=== PATIENT | male | born 2000 | race Two or more races ===

== ENCOUNTER 2019-03-25 10:01 | Emergency (ER) | payer OTHER ==
[~2019-03-25] VITALS: Ht 170.2 cm; Wt 65.8 kg
[2019-03-25] MEDS ORDERED: NKM (10:09)
[2019-03-25 10:45] LABS: HEMATOCRIT 45.4 % (42.0-52.0); HEMOGLOBIN 15.4 G/DL (14.2-18.0); MEAN CORPUSCULAR VOLUME 80 FL (80-99); PLATELET COUNT 393 K/UL (150-450); RED BLOOD COUNT 5.64 M/UL (4.70-6.10); RED CELL DISTRIBUTION WIDTH 10.1 % (11.6-14.8); WHITE BLOOD COUNT 14.9 K/UL (4.8-10.8)
[2019-03-25] MEDS ORDERED: DiphenhydrAMINE 50mg/ml Inj IVP ONE (10:45)
[2019-03-25 10:57] LABS: ANION GAP 16 mmol/L (5-15); BLOOD UREA NITROGEN 11 mg/dL (7-18); CALCIUM 10.2 MG/DL (8.5-10.1); CARBON DIOXIDE 23 MMOL/L (21-32); CHLORIDE 99 MMOL/L (98-107); CREATININE 0.9 MG/DL (0.55-1.30); POTASSIUM 3.6 MMOL/L (3.5-5.1); SODIUM 138 MMOL/L (136-145)
[2019-03-25 11:00] VITALS: BP 141/81
[2019-03-25 11:11] LABS: ALANINE AMINOTRANSFERASE 68 U/L (12-78); ALBUMIN 3.5 G/DL (3.4-5.0); ALBUMIN/GLOBULIN RATIO 0.6 (1.0-2.7); ALKALINE PHOSPHATASE 130 U/L (46-116); ASPARTATE AMINO TRANSFERASE 37 U/L (15-37); BILIRUBIN,TOTAL 1.8 MG/DL (0.2-1.0)
[2019-03-25 11:12] LABS: BILIRUBIN,DIRECT 0.4 MG/DL (0.0-0.3)
--- NOTE | 2019-03-25 11:13 | NUR ---
ED Nurse Note: pt arrives from home states he has n/v/abd with anything he drinks or eats x 10 days. states he has hx of h. pylori. denies recent travel. denies drug or etoh use. denies dyspnea. a/ox4 cooperative and tolerates iv start and lab draw well. pt giving urine sample upon arrival. no active pain n/v
[2019-03-25] MEDS ORDERED: LORazepam Inj 2mg/ml 1ml IV ONE (11:15)
[2019-03-25 12:00] VITALS: BP 152/78
[2019-03-25 13:00] VITALS: BP 124/62
[2019-03-25] MEDS ORDERED: Dicyclomine HCl 10mg/5ml oral soln ORAL ONE (13:00)
[2019-03-25] MEDS ORDERED: Mylanta II UD 30ml ORAL ONE (13:00)
--- NOTE | 2019-03-25 13:00 | NUR ---
ED Nurse Note:pt without increased pain resting in room with vss. family at bs. awaiting further dispo
[2019-03-25] MEDS ORDERED: PEPCID AC20 M2 PO (13:02)
--- NOTE | 2019-03-25 13:52 | Emergency Room Report ---
History of Present Illness General Chief Complaint: Abdominal Pain Source: Patient Present Illness HPI Patient presents with complaints of epigastric abdominal pain increased nausea vomiting reports that he has been unable to keep much food down Ongoing for the past several days Denies any chest pain denies any lower abdominal pain Discomfort is in the epigastric region with some burning and sharp sensation He reports intermittent diarrhea as well over the past 2 days denies any blood in the stool Subjective fevers off and on denies any recent travel denies any neck pain or photophobia denies any rash patient reports that he had H. pylori in the past Allergies: Coded Allergies: No Known Allergies (Unverified , 03/25/19) Patient History Past Medical History: see triage record Pertinent Family History: none Reviewed Nursing Documentation: PMH: Agreed; PSxH: Agreed Nursing Documentation-PMH Past Medical History: No Stated History Review of Systems All Other Systems: negative except mentioned in HPI Physical Exam Vital Signs Date Time Temp Pulse Resp B/P (MAP) Pulse Ox O2 Delivery O2 Flow Rate FiO2 03/25/19 10:04 99.5 120 24 150/88 (108) 93 Room Air Sp02 EP Interpretation: reviewed, normal General Appearance: well appearing, no apparent distress Head: normocephalic, atraumatic Eyes: bilateral eye PERRL, bilateral eye EOMI ENT: hearing grossly normal, normal pharynx, TMs + canals normal, uvula midline Neck: full range of motion, supple, no meningismus, no bony tend Respiratory: lungs clear, normal breath sounds, no rhonchi, no respiratory distress, no retraction, no accessory muscle use Cardiovascular #1: normal peripheral pulses, regular rate, rhythm, no edema, no gallop, no JVD, no murmur Gastrointestinal: normal bowel sounds, non tender - However points to epigastric area for discomfort, soft, no mass, no organomegaly, non-distended, no guarding, no hernia, no pulsatile mass, no rebound Genitourinary: no CVA tenderness Musculoskeletal: normal inspection Neurologic: oriented x3, responsive, commercial review appraiser III-XII nml as tested, motor strength/ tone normal, sensory intact Psychiatric: mood/affect normal Skin: normal color, no rash, warm/dry, palpation normal Lymphatic: normal inspection, no adenopathy Medical Decision Making Diagnostic Impression: Primary Impression: abdominal pain ER Course With the history exam and presentation, multiple differentials considered, including but not limited to appendicitis, gastritis, cholecystitis, diverticulitis Patient's white blood cell count was mildly elevated there is some minimal change with the liver function test Therefore ultrasound imaging was also obtained There is reading regarding the celiac artery This finding is taken into consideration, CT angio is required for further evaluation On repeat examination, however patient feels significantly improved denies any chest pain or shortness of breath Pain is significantly improved as well patient reports a very similar presentation to previous H. pylori disease And at this time is stable for conservative outpatient trial and will return with any worsening symptoms Labs Test 03/25/19 10:30 White Blood Count 14.9 K/UL (4.8-10.8) Red Blood Count 5.64 M/UL (4.70-6.10) Hemoglobin 15.4 G/DL (14.2-18.0) Hematocrit 45.4 % (42.0-52.0) Mean Corpuscular Volume 80 FL (80-99) Mean Corpuscular Hemoglobin 27.2 PG (27.0-31.0) Mean Corpuscular Hemoglobin Concent 33.8 G/DL (32.0-36.0) Red Cell Distribution Width 10.1 % (11.6-14.8) Platelet Count 393 K/UL (150-450) Mean Platelet Volume 5.5 FL (6.5-10.1) Neutrophils (%) (Auto) % (45.0-75.0) Lymphocytes (%) (Auto) % (20.0-45.0) Monocytes (%) (Auto) % (1.0-10.0) Eosinophils (%) (Auto) % (0.0-3.0) Basophils (%) (Auto) % (0.0-2.0) Differential Total Cells Counted 100 Neutrophils % (Manual) 86 % (45-75) Lymphocytes % (Manual) 8 % (20-45) Monocytes % (Manual) 6 % (1-10) Eosinophils % (Manual) 0 % (0-3) Basophils % (Manual) 0 % (0-2) Band Neutrophils 0 % (0-8) Platelet Estimate Adequate Platelet Morphology Normal Red Blood Cell Morphology Normal Sodium Level 138 MMOL/L (136-145) Potassium Level 3.6 MMOL/L (3.5-5.1) Chloride Level 99 MMOL/L (98-107) Carbon Dioxide Level 23 MMOL/L (21-32) Anion Gap 16 mmol/L (5-15) Blood Urea Nitrogen 11 mg/dL (7-18) Creatinine 0.9 MG/DL (0.55-1.30) Estimat Glomerular Filtration Rate > 60 mL/min (>60) Glucose Level 104 MG/DL (74-106) Calcium Level 10.2 MG/DL (8.5-10.1) Total Bilirubin 1.8 MG/DL (0.2-1.0) Direct Bilirubin 0.4 MG/DL (0.0-0.3) Aspartate Amino Transf (AST/SGOT) 37 U/L (15-37) Alanine Aminotransferase (ALT/SGPT) 68 U/L (12-78) Alkaline Phosphatase 130 U/L (46-116) Total Protein 9.6 G/DL (6.4-8.2) Albumin 3.5 G/DL (3.4-5.0) Globulin 6.1 g/dL Albumin/Globulin Ratio 0.6 (1.0-2.7) Lipase 114 U/L (73-393) Urine Opiates Screen Negative (NEGATIVE) Urine Barbiturates Screen Negative (NEGATIVE) Phencyclidine (PCP) Screen Negative (NEGATIVE) Urine Amphetamines Screen Negative (NEGATIVE) Urine Benzodiazepines Screen Negative (NEGATIVE) Urine Cocaine Screen Negative (NEGATIVE) Urine Marijuana (THC) Screen Positive (NEGATIVE) CT/MRI/US Diagnostic Results CT/MRI/US Diagnostic Results : Impression Abdominal ultrasoundIMPRESSION: 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 Significant stenosis may be present. Suggest further evaluation with CTA. Last Vital Signs Date Time Temp Pulse Resp B/P (MAP) Pulse Ox O2 Delivery O2 Flow Rate FiO2 03/25/19 11:17 102 24 Room Air 03/25/19 11:00 141/81 97 03/25/19 10:04 99.5 Status: improved Disposition: HOME, SELF-CARE Condition: Improved Scripts Famotidine (PEPCID AC) 20 Mg Tablet 20 MG PO DAILY for 7 Days, TAB Prov: Robin Smith 03/25/19 Referrals: NON PHYSICIAN (PCP) Patient Instructions: Biliary Colic, Abdominal Pain, Adult Additional Instructions: Patient is provided with the discharge instructions notified to follow up with primary doctor in the next 2-3 days otherwise return to the er with any worsening symptoms. Please note that this report is being documented using DRAGON technology. This can lead to erroneous entry secondary to incorrect interpretation by the dictating instrument. Robin Smith DO Mar 25, 2019 13:52
[2019-03-25 14:00] VITALS: BP 115/89
--- NOTE | 2019-03-25 14:10 | Diagnostic Imaging Report ---
Indication: Abdominal pain Technique: Grayscale and duplex Doppler imaging of the abdomen performed. Comparison: None Findings: Duplex Doppler evaluation of the celiac artery and SMA performed. Peak velocity in the celiac artery is 267 cm/s which is high. Stenosis may be present. Further evaluation with CTA recommended. SMA velocity is 221 cm/s. This is in the upper limits of probably not indicative of significant stenosis. The liver is unremarkable. Doppler interrogation of the main portal vein shows patency with hepatopedal, monophasic flow. There is no biliary ductal dilitation identified. The CBD measures 3 mm. The gallbladder is unremarkable. There are no gallstones or wall thickening identified. Sonographic jaramillo's sign was negative per technologist. The demonstrated part of the pancreas, aorta and IVC show no abnormalities. Both kidneys appear unremarkable. There is no hydronephrosis. The spleen is normal in size, contour and echogenicity. There is no free fluid identified. IMPRESSION: 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 Significant stenosis may be present. Suggest further evaluation with CTA.
--- NOTE | 2019-03-25 14:15 | NUR ---
ED Nurse Note:repeat iv bolus done pt without increased pain. pt having us done at bs. tolerating well
[2019-03-25 15:07] VITALS: BP 115/89
[2019-03-26] MEDS ORDERED: ZOFRAN4 M1 ORAL (19:08)
[2019-03-26] MEDS ORDERED: CEPHALEXIN500 MG ORAL (19:08)
[2019-03-26] MEDS ORDERED: EXCEDRIN EXTRA1 EAC1 PO (19:08)
== END 2019-03-25 15:00 | disposition home or self-care (01) ==
LOC: EMR 10:35
DX: R10.13 Epigastric pain (principal); R11.2 Nausea with vomiting, unspecified; R19.7 Diarrhea, unspecified
CPT/HCPCS: 36415; 76700; 80053; 80307; 82248; 83690; 85007; 85025; 96361; 96374; 96375; 99284; J1200; J2405

== ENCOUNTER 2019-03-26 12:43 | Emergency (ER) | payer OTHER ==
[~2019-03-26] VITALS: Ht 170.2 cm; Wt 65.8 kg
[~2019-03-26 12:43] MED LIST: NKM; PEPCID AC20 M2 PO
--- NOTE | 2019-03-26 13:10 | NUR ---
ED Nurse Note: Patient walked into ED c/o having fever since yesterday. Oral temperature taken at triage was 100.2F patietn is alert awake x4 ambulatory, breathing unlabored and even.
--- NOTE | 2019-03-26 13:42 | NUR ---
ED Nurse Note: blood/urine sent to lab
--- NOTE | 2019-03-26 13:43 | NUR ---
ED Nurse Note: patient taken to CT
--- NOTE | 2019-03-26 13:53 | NUR ---
ED Nurse Note: patient came back from CT
[2019-03-26 14:01] LABS: APPEARANCE,URINE CLOUDY; BILIRUBIN, URINE NEGATIVE (NEGATIVE); GLUCOSE, URINE (UA) NEGATIVE (NEGATIVE); KETONES,URINE 2+ (NEGATIVE); LEUKOCYTE ESTERASE ,URINE 1+ (NEGATIVE); NITRITE,URINE NEGATIVE (NEGATIVE); PH,URINE 8 (4.5-8.0); PROTEIN,URINE 1+ (NEGATIVE); UROBILINOGEN,URINE 4 MG/DL (0.0-1.0)
[2019-03-26 14:04] LABS: COLOR,URINE YELLOW
[2019-03-26 14:07] LABS: ANION GAP 12 mmol/L (5-15); BLOOD UREA NITROGEN 11 mg/dL (7-18); CALCIUM 10.2 MG/DL (8.5-10.1); CARBON DIOXIDE 27 MMOL/L (21-32); CHLORIDE 100 MMOL/L (98-107); CREATININE 0.9 MG/DL (0.55-1.30); POTASSIUM 3.7 MMOL/L (3.5-5.1); SODIUM 139 MMOL/L (136-145)
[2019-03-26 14:08] LABS: HEMATOCRIT 42.6 % (42.0-52.0); HEMOGLOBIN 14.6 G/DL (14.2-18.0); MEAN CORPUSCULAR VOLUME 81 FL (80-99); PLATELET COUNT 438 K/UL (150-450); RED BLOOD COUNT 5.25 M/UL (4.70-6.10); RED CELL DISTRIBUTION WIDTH 10.2 % (11.6-14.8); WHITE BLOOD COUNT 13.3 K/UL (4.8-10.8)
[2019-03-26 14:11] VITALS: BP 128/92
[2019-03-26 14:11] LABS: INR 1.1 (0.9-1.1)
[2019-03-26 14:24] LABS: ALANINE AMINOTRANSFERASE 52 U/L (12-78); ALBUMIN 3.3 G/DL (3.4-5.0); ALBUMIN/GLOBULIN RATIO 0.5 (1.0-2.7); ALKALINE PHOSPHATASE 127 U/L (46-116); ASPARTATE AMINO TRANSFERASE 26 U/L (15-37); BILIRUBIN,TOTAL 1.5 MG/DL (0.2-1.0)
--- NOTE | 2019-03-26 14:24 | Diagnostic Imaging Report ---
Indication: Headache. Left eye blurry vision Technique: Contiguous 5 mm thick transaxial imaging of the head obtained in a Siemens Sensation [address] scanner. Soft tissue and bone windows generated. Automatic Exposure Control was utilized. Total Dose length Product (DLP): [address] Dose Index Volume (CTDIvol): 70.38, 0.15 mGy Comparison: none Findings: The size and configuration of the cortical sulci, basal cisterns, and ventricles are within normal limits for age. There is no mass effect, midline shift, or edema identified. There is no evidence of acute hemorrhage or abnormal intra-axial or extra-axial fluid collections. The bones and soft tissues are unremarkable. Impression: No mass effect, edema or acute bleed. The CT scanner at [facility] is accredited by the [employer] and the scans are performed using dose optimization techniques as appropriate to a performed exam including Automatic Exposure control.
--- NOTE | 2019-03-26 14:26 | Diagnostic Imaging Report ---
Indication: Dyspnea. Chest pain Comparison: None A single view chest radiograph was obtained. Findings: Cardiomediastinal appearance is within normal limits for age. The lungs are clear. Pulmonary vascularity is appropriate. The diaphragmatic contour is smooth and costophrenic angles are sharp. No pleural effusions are identified. The bones are unremarkable. Impression: No acute findings
[2019-03-26 14:28] LABS: BILIRUBIN,DIRECT 0.4 MG/DL (0.0-0.3)
[2019-03-26] MEDS ORDERED: Metoclopramide 10mg/2ml Inj IVP ONE (14:30)
[2019-03-26] MEDS ORDERED: Ketorolac 30mg Inj IV ONE (14:45)
[2019-03-26] MEDS ORDERED: LORazepam 1mg tab ORAL ONE (15:15)
[2019-03-26 15:27] VITALS: BP 123/64
[2019-03-26] MEDS ORDERED: Gadavist 7.5mMol/7.5ml vial IV PRN (15:30)
--- NOTE | 2019-03-26 15:53 | NUR ---
ED Nurse Note: patient taken down to MRI
--- NOTE | 2019-03-26 17:08 | NUR ---
ED Nurse Note: patient came back from MRI mother at bedside
--- NOTE | 2019-03-26 19:07 | Emergency Room Report ---
History of Present Illness General Chief Complaint: Fever Source: Patient Present Illness HPI 18-year-old male with history of gastritis throughout the 5-hour visit that he had today at the emergency room he said that he was seeing blurred in the left eye and could not do the Snellen test and visual acuity with the left eye. Was here yesterday for abdominal pain here complaining of several days of fever and 1 day of sudden onset of 10 out of 10 left-sided headache with blurry vision in the left eye. Patient reports that he is also sensitive to light and having a aura feeling nauseated and has not vomited. Patient reports the fever started about a week ago on and off was brought in to Dr. 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 Patient reports that he has minor anxiety and and is in school however denies living in a dormitory, drug use, smoking, alcohol intake. Patient denies recent URI. Denies UTI symptoms. Denies abdominal pain, diarrhea and constipation, bloody emesis at this time. After being given fluids and Reglan patient says having anxiety and wants to take the IV out. Denies head trauma, history of multiple sclerosis or family history of multiple sclerosis, history of migraine headaches. Allergies: Coded Allergies: No Known Allergies (Unverified , 03/25/19) Patient History Past Medical History: see triage record Past Surgical History: unable to obtain Pertinent Family History: none Immunizations: UTD Reviewed Nursing Documentation: PMH: Agreed; PSxH: Agreed Nursing Documentation-PM Past Medical History: No History, Except For Hx Seizures: Yes - Last seizure 16 years ago Review of Systems All Other Systems: negative except mentioned in HPI Physical Exam Vital Signs Date Time Temp Pulse Resp B/P (MAP) Pulse Ox O2 Delivery O2 Flow Rate FiO2 03/26/19 13:02 100.2 120 20 132/86 (101) 96 Room Air Sp02 EP Interpretation: reviewed, normal General Appearance: normal inspection, well appearing, no apparent distress, GCS 15 Head: normocephalic, atraumatic Eyes: left eye photophobia; bilateral eye fluoroscene uptake ENT: normal ENT inspection, hearing grossly normal, normal pharynx, no angioedema Neck: normal inspection, full range of motion, supple, thyroid normal, no carotid bruits Respiratory: normal inspection, chest non-tender, lungs clear, no rhonchi, no wheezing Cardiovascular #1: normal inspection, normal peripheral pulses, regular rate, rhythm, no edema, no murmur, normal capillary refill Gastrointestinal: normal inspection, non tender, soft Rectal: deferred Genitourinary: no CVA tenderness Musculoskeletal: normal inspection, back normal, digits/nails normal, gait/ station normal Neurologic: normal inspection, alert, oriented x3 Psychiatric: normal inspection, judgement/insight normal Skin: normal inspection, normal color, no rash, warm/dry Lymphatic: normal inspection, no adenopathy Medical Decision Making PA Attestation All my diagnosis and treatment plans were reviewed ad discussed with my supervising physician Dr. Acosta Diagnostic Impression: Primary Impression: Fever of unknown origin Additional Impression: Acute headache ER Course 18-year-old male with history of gastritis throughout the 5-hour visit that he had today at the emergency room he said that he was seeing blurred in the left eye and could not do the Snellen test and visual acuity with the left eye. Was here yesterday for abdominal pain here complaining of several days of fever and 1 day of sudden onset of 10 out of 10 left-sided headache with blurry vision in the left eye. Patient reports that he is also sensitive to light and having a aura feeling nauseated and has not vomited. Patient reports the fever started about a week ago on and off was brought in to Dr. 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 Patient reports that he has minor anxiety and and is in school however denies living in a dormitory, drug use, smoking, alcohol intake. Patient denies recent URI. Denies UTI symptoms. Denies abdominal pain, diarrhea and constipation, bloody emesis at this time. After being given fluids and Reglan patient says having anxiety and wants to take the IV out. Denies head trauma, history of multiple sclerosis or family history of multiple sclerosis, history of migraine headaches. Ddx considered but are not limited to: Headache, bacterial versus viral meningitis, multiple sclerosis, CVA, TIA, optic neuritis, fever of unknown origin, Vital signs: are WNL, pt. is afebrile H&PE are most consistent with: Acute headache most likely secondary to anxiety , fever of unknown origin ORDERS: head CT no contrast , MRI with contrast of the orbit, CBC, CMP, IV fluids, Reglan, Ativan ED INTERVENTIONS: Ativan, Reglan, IV fluids, Tylenol, Toradol DISCHARGE: At this time pt. is stable for d/c to home. Will provide printed patient care instructions, and any necessary prescriptions. Care plan and follow up instructions have been discussed with the patient prior to discharge. Patient to follow-up with her primary care provider I spoke to the radiologist today with clear MRI results however he is sending it to [facility] for the radiologist to read the past 8 PM tonight and we discussed with the patient that if there is any changes will go ahead and call him and that he is to follow -up with a primary care physician urine leuk and WBC 13 EKG Diagnostic Results Rate: normal Rhythm: NSR ST Segments: no acute changes Chest X-Ray Diagnostic Results Chest X-Ray Diagnostic Results : Chest X-Ray Ordered: Yes # of Views/Limited/Complete: 1 View Indication: Other PA Xray: Interpretation reviewed, by supervising MD, and agrees with findings. Interpretation: no consolidation, no effusion, no pneumothorax Impression: No acute disease Electronically Signed by: itzel patel PA-C CT/MRI/US Diagnostic Results CT/MRI/US Diagnostic Results #1: Imaging Test Ordered: head CT no contrast Impression WNL CT/MRI/US Diagnostic Results #2: Imaging Test Ordered: MRI orbit w contrast Impression MRI HEAD : Motion artifact No acute infarct, mass effect or evidence of intracranial hemorrhage Ventricles are within limits and midline Major intracranial flow voids appear within limits MRI ORBITS : Appearance of absence of fat saturation of the right intraconal fat which may be artifactual and limits the right orbital evaluation The left extraocular muscles and left optic nerve appear within limits No evidence of abnormal enhancement Last Vital Signs Date Time Temp Pulse Resp B/P (MAP) Pulse Ox O2 Delivery O2 Flow Rate FiO2 03/26/19 15:27 98.2 93 17 123/64 95 Room Air Disposition: HOME, SELF-CARE Condition: Stable Scripts Ondansetron (Zofran) 4 Mg Tablet 4 MG ORAL Q6H PRN for Nausea & Vomiting, #20 TAB Prov: Itzel Lagunas 03/26/19 Cephalexin* (KEFLEX*) 500 Mg Capsule 500 MG ORAL EVERY 6 HOURS for 7 Days, #28 CAP Prov: Itzel Lagunas 03/26/19 Aspirin/Acetaminophen/Caffeine (EXCEDRIN EXTRA STRENGTH CAPLET) 1 Each Tablet 1 EACH PO BID, #30 TAB Prov: Itzel Lagunas 03/26/19 Referrals: NON PHYSICIAN (PCP) Patient Instructions: Fever, Adult, General Headache Without Cause, Easy-to- Read Additional Instructions: Take medication as directed check your temperature every 3-4 hours. Alternate between ibuprofen and Tylenol to lower your temperature. Follow-up with your primary care provider. Itzel Lagunas Mar 26, 2019 19:06
[2019-03-26] MEDS ORDERED: CEPHALEXIN500 MG ORAL (19:08)
[2019-03-26] MEDS ORDERED: ZOFRAN4 M1 ORAL (19:08)
[2019-03-26] MEDS ORDERED: EXCEDRIN EXTRA1 EAC1 PO (19:08)
[2019-03-26 19:14] VITALS: BP 123/64
--- NOTE | 2019-03-26 19:15 | NUR ---
ER DISCHARGE NOTE: Patient is cleared to be discharged per ALDO KRAUSE, pt is aox4, on room air, with stable vital signs. pt was given dc and prescription instructions, pt was able to verbalize understanding, pt id band and iv site removed without complications. pt is able to ambulate with steady gait. pt took all belongings.
--- NOTE | 2019-03-27 10:31 | Diagnostic Imaging Report ---
Indication: Left visual disturbance. Headache. Technique: The orbits were imaged in a 1.5 [employer] magnet. Sequences obtained include multiplanar pre and post T1 fat sat and T2 fat sat orbits, brain sequences including sagittal and axial T1 FLAIR, axial T2 fast spin echo with fat saturation, axial T2 FLAIR, diffusion and ADC map. Comparison: None The study is degraded by motion. There is no diffusion restriction to suggest acute CVA. No mass effect or edema are demonstrated within the brain. The size, contour, configuration of the cortical sulci, basal cisterns and ventricles are within normal limits. The orbits appear normal. There is some heterogeneous failure of fat saturation within the intraconal fat probably related to motion. The globes appear normal. There is no abnormal enhancement. The cavernous sinus enhances normally. Flow voids demonstrated within the cavernous carotid arteries. Osseous structures visualized appear unremarkable. IMPRESSION: Negative MRI of the orbits. No evidence of abnormal enhancement of the optic nerves or cavernous sinus thrombosis. Negative MRI of the brain. No evidence of acute CVA. Significantly limited examination with degradation of image quality due to motion. [facility] has communicated the preliminary results to the Emergency Department. Their findings are largely concordant with this report.
== END 2019-03-26 19:14 | disposition home or self-care (01) ==
LOC: EMR 13:38
DX: R50.9 Fever, unspecified (principal); R51 Headache; R11.0 Nausea; F41.9 Anxiety disorder, unspecified
CPT/HCPCS: 36415; 70450; 70543; 71045; 80053; 80307; 80329; 81001; 82248; 85007; 85025; 85610; 85730; 93005; 96361; 96374; 96375; 99284; A9585; J1885; J2765; S0028

== ENCOUNTER 2020-05-28 17:55 | Emergency (ER) | payer OTHER ==
[~2020-05-28] VITALS: Ht 170.2 cm; Wt 65.8 kg
[~2020-05-28 17:55] MED LIST changes: +CEPHALEXIN500 MG ORAL; +EXCEDRIN EXTRA1 EAC1 PO; +ZOFRAN4 M1 ORAL
--- NOTE | 2020-05-28 18:05 | NUR ---
ED Nurse Note: Patient walked into ED, states he was stuck in the right palm with a needle while pumping gas. Patient states he saw the needle on the gas pump after he was poked and immediately drove to the ED. Patient AxO x , no s/s of acute distress.
[2020-05-28 18:12] VITALS: BP 100/52
[2020-05-28] MEDS ORDERED: Tetanus/Diptheria/Pertussis IM ONE (18:15)
--- NOTE | 2020-05-28 18:35 | NUR ---
ED Nurse Note: ERPA at bedside. Answered questions regarding blood tests and f/u tx for needle stick injury
[2020-05-28 18:55] LABS: ANION GAP 13 mmol/L (5-15); BLOOD UREA NITROGEN 12 mg/dL (7-18); CALCIUM 9.7 MG/DL (8.5-10.1); CARBON DIOXIDE 24 MMOL/L (21-32); CHLORIDE 104 MMOL/L (98-107); CREATININE 1.2 MG/DL (0.55-1.30); SODIUM 141 MMOL/L (136-145)
[2020-05-28 18:59] LABS: ALANINE AMINOTRANSFERASE 19 U/L (12-78); ALBUMIN 4.7 G/DL (3.4-5.0); ALBUMIN/GLOBULIN RATIO 1.1 (1.0-2.7); ALKALINE PHOSPHATASE 101 U/L (46-116); ASPARTATE AMINO TRANSFERASE 18 U/L (15-37); BILIRUBIN,TOTAL 0.6 MG/DL (0.2-1.0)
--- NOTE | 2020-05-28 19:45 | Emergency Room Report ---
History of Present Illness General Chief Complaint: Puncture Wound Source: Patient Present Illness Allergies: Coded Allergies: No Known Allergies (Unverified , 03/25/19) COVID-19 Screening Contact w/high risk pt: No Experienced COVID-19 symptoms?: No COVID-19 Testing performed TEST MANAGER: No Nursing Documentation-PMH Hx Seizures: Yes - Last seizure 16 years ago Physical Exam Vital Signs Date Time Temp Pulse Resp B/P (MAP) Pulse Ox O2 Delivery O2 Flow Rate FiO2 05/28/20 17:59 98.2 90 18 100/52 (68) 97 Medical Decision Making PA Attestation Dr. White Is my supervising Physician whom patient management has been discussed with. Diagnostic Impression: Primary Impression: Needle stick injury of finger of right hand ER Course Pt. presents to the ED c/o accidental needle stick at the gas pump. Pt. denies seeing any bleeding. Pt. describes hypodermic needle. Pt. denies hx of immune compromise. - Pt Reports [Denies] receiving childhood required vaccinations including Hepatitis series. -Tetanus [ ] Ddx considered but are not limited to cellulitis, HIV exposure, hepatitis exposure, tetanus Vital signs: are WNL, pt. is afebrile H&PE are most consistent with : Needle sick injury, possible exposure. --Small pinpoint puncture wound noted to [ ] not bleeding at this time, no surrounding erythema, no evidence of secondary infection. ORDERS: -Anti-Hbs-ag - liver panel: WNL no acute elevation, or indication of chronic liver disease. - rapid HIV 1 & 2 : Negative - Hepatitis C Anti-body: Pending -- * Urine Hcg: PT. EDUCATION: -Discussed with patient that since the incident occurred several hours ago testing her right now for contraction of the virus would most likely be negative, and that she needs to followup in a month to be re-tested. ED INTERVENTIONS: -Tetanus vaccination was administered DISCHARGE: At this time pt. is stable for d/c to home. Will provide printed patient care instructions, and any necessary prescriptions. Care plan and follow up instructions have been discussed with the patient prior to discharge. Last Vital Signs Date Time Temp Pulse Resp B/P (MAP) Pulse Ox O2 Delivery O2 Flow Rate FiO2 05/28/20 18:12 98.2 18 100/52 97 05/28/20 17:59 90 Disposition: HOME, SELF-CARE Condition: Stable Referrals: NON PHYSICIAN (PCP) [facility] Patient Instructions: Needle Stick Injury Additional Instructions: Take medications as directed. Follow up with a Primary Care Provider in 3-5 days, even if your symptoms have resolved. --Please review list of primary care clinics, if you do not already have a primary care provider. Also provided is a list of local [facility] for follow up testing and any necessary treatments as needed. Return sooner to ED if new symptoms occur, or current symptoms become worse. - Please note that this Emergency Department Report was dictated using [employer] assembly department technology software, occasionally this can lead to erroneous entry secondary to interpretation by the dictation equipment. Damaris Chris May 28, 2020 19:45
[2020-05-28 19:51] VITALS: BP 100/52
--- NOTE | 2020-05-28 19:51 | NUR ---
ER DISCHARGE NOTE: Patient is cleared to be discharged per ER provider. Patient verbalized understanding of discharge instructions. Patient provided with additional resources for treatment and testing along with lab results of rapid testing. Patient ID band removed. Patient departed with all belongings to home via personal vehicle.
== END 2020-05-28 19:51 | disposition home or self-care (01) ==
LOC: EMR 18:25
DX: S61.431A Puncture wound without foreign body of right hand, initial encounter (principal); G40.909 Epilepsy, unspecified, not intractable, without status epilepticus; W22.8XXA Striking against or struck by other objects, initial encounter; Y93.89 Activity, other specified; Y92.524 Gas station as the place of occurrence of the external cause; Z79.82 Long term (current) use of aspirin; Z79.899 Other long term (current) drug therapy
CPT/HCPCS: 36415; 80053; 86703; 86803; 87340; 90471; 90715; Z7502; 99283

== ENCOUNTER 2020-06-11 10:55 | Emergency (ER) | payer OTHER ==
[~2020-06-11] VITALS: Ht 172.7 cm; Wt 65.8 kg
[2020-06-11 11:19] VITALS: BP 125/72
--- NOTE | 2020-06-11 11:34 | Emergency Room Report ---
History of Present Illness General Chief Complaint: Abdominal Pain Source: Patient Present Illness HPI Patient presents with 2 days of intermittent left flank pain. The pain radiates somewhat down into his groin and hip area. He denies any trauma. 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 He has been doing this for several months. He is never had pain like this before. The patient denies any fevers or chills. There is no dysuria. There is no hematuria. He has not taken any medication for the pain. He rates the pain 5/10 and somewhat aching. It is intermittent. The patient is being evaluated for GI complaints. He says he has bloating and increased gas. This is different in his location from the current problem. It is more generalized and possibly epigastric. He says the GI specialist is not prescribed any treatment. The GI specialist has scheduled him for colonoscopy. The patient denies exposure to COVID-19 positive contacts although he delivers food. The patient is undergoing a significant amount of stress at this time his mother is battling thyroid cancer. No sore throat, chest pain, palpitations, nausea, vomiting, diarrhea, shortness of breath, rashes, visual changes, dizziness, headache. Allergies: Coded Allergies: No Known Allergies (Unverified , 03/25/19) COVID-19 Screening Contact w/high risk pt: No Experienced COVID-19 symptoms?: No COVID-19 Testing performed FOOD SERVICE AMBASSADOR: No Patient History Social History: Denies: smoking, alcohol use Social History Narrative Food delivery via bicycle Reviewed Nursing Documentation: PMH: Agreed - bicycle food delivery; PSxH: Agreed - bicycle food delivery Nursing Documentation-PM Past Medical History: No History, Except For Hx Seizures: Yes - Last seizure 16 years ago Review of Systems All Other Systems: negative except mentioned in HPI Physical Exam Vital Signs Date Time Temp Pulse Resp B/P (MAP) Pulse Ox O2 Delivery O2 Flow Rate FiO2 06/11/20 11:02 97.9 92 16 125/72 (89) 99 Sp02 EP Interpretation: reviewed, normal General Appearance: well appearing, no apparent distress, GCS 15 Head: normocephalic Eyes: bilateral eye normal inspection, bilateral eye PERRL, bilateral eye EOMI ENT: moist mucus membranes Neck: supple Respiratory: lungs clear, normal breath sounds Cardiovascular #1: regular rate, rhythm Cardiovascular #2: 2+ radial (R) Gastrointestinal: normal inspection, normal bowel sounds, no mass, non- distended, no guarding, no rebound, tenderness - Reported left lower quadrant Genitourinary: no CVA tenderness Musculoskeletal: back normal, normal range of motion, gait/station normal Neurologic: alert, oriented x3, normal inspection Psychiatric: mood/affect normal - Somewhat subdued Skin: no rash, warm/dry Medical Decision Making Diagnostic Impression: Primary Impression: Flank pain ER Course Patient presents with 2 days of left flank pain. Differential includes muscle strain, diverticulitis, renal stone, pyelonephritis, functional bowel amongst others. The patient states that there is no pain at this time. Evaluation with KUB and urinalysis. Patient declines pain medication at this time. KUB normal. Urinalysis clear. Discussed results with patient. He was concerned that he might have cancer. The patient was advised that this would be extremely rare. Also discussion of stress and how it possibly relates to some of his abdominal symptomatology. Discussed treatment plan with focusing on outpatient reevaluation. Patient stable for outpatient observation and treatment. Laboratory Tests Test 06/11/20 11:30 Urine Color Pale yellow Urine Appearance Clear Urine pH 6.5 (4.5-8.0) Urine Specific [place] 1.015 (1.005-1.035) Urine Protein Negative (NEGATIVE) Urine Glucose (UA) Negative (NEGATIVE) Urine Ketones Negative (NEGATIVE) Urine Blood Negative (NEGATIVE) Urine Nitrite Negative (NEGATIVE) Urine Bilirubin Negative (NEGATIVE) Urine Urobilinogen Normal MG/DL (0.0-1.0) Urine Leukocyte Esterase Negative (NEGATIVE) Other X-Ray Diagnostic Results Other X-Ray Diagnostic Results : X-Ray ordered: KUB # of Views/Limited Vs Complete: 2 View Indication: Pain EP Interpretation: Yes Interpretation: nonspecific bowel gas, no sbo, other - no calcifications Impression: No acute disease Electronically Signed by: Electronically signed by Kevin Alcantara MD Last Vital Signs Date Time Temp Pulse Resp B/P (MAP) Pulse Ox O2 Delivery O2 Flow Rate FiO2 06/11/20 12:30 97.9 82 16 125/72 99 Status: unchanged Disposition: HOME, SELF-CARE Condition: Stable Scripts Acetaminophen (Tylenol) 325 Mg Tablet 650 MG ORAL Q6H PRN for Prn Pain/Headache/Temp > 101, #20 TAB 0 Refills Prov: Kevin Alcantara MD 06/11/20 Famotidine* (Pepcid 20mg tablet*) 20 Mg Tablet 20 MG ORAL DAILY, #30 TAB 0 Refills Prov: Kevin Alcantara MD 06/11/20 Kevin Alcantara MD Jun 11, 2020 11:34
[2020-06-11 11:41] LABS: APPEARANCE,URINE CLEAR; BILIRUBIN, URINE NEGATIVE (NEGATIVE); COLOR,URINE PALE YELLOW; GLUCOSE, URINE (UA) NEGATIVE (NEGATIVE); KETONES,URINE NEGATIVE (NEGATIVE); LEUKOCYTE ESTERASE ,URINE NEGATIVE (NEGATIVE); NITRITE,URINE NEGATIVE (NEGATIVE); PH,URINE 6.5 (4.5-8.0); PROTEIN,URINE NEGATIVE (NEGATIVE); UROBILINOGEN,URINE NORMAL MG/DL (0.0-1.0)
[2020-06-11 12:30] VITALS: BP 125/72
[2020-06-11] MEDS ORDERED: TYLENOL325 MG ORAL (12:30)
[2020-06-11] MEDS ORDERED: FAMOTIDINE20 MG ORAL (12:30)
--- NOTE | 2020-06-11 13:03 | Diagnostic Imaging Report ---
Indication: Abdominal pain Technique: One view of the abdomen Comparison: none Findings: Bowel gas pattern is unremarkable. Moderate stool is seen in the distal colon. No masses or unusual calcifications. Impression: No acute process
== END 2020-06-11 12:30 | disposition home or self-care (01) ==
LOC: EMR 12:00
DX: R10.32 Left lower quadrant pain (principal)
CPT/HCPCS: 74018; 81003; Z7502; 99283

== ENCOUNTER 2020-06-21 13:30 | Emergency (ER) | payer OTHER ==
[~2020-06-21] VITALS: Ht 172.7 cm; Wt 64.4 kg
[~2020-06-21 13:30] MED LIST changes: +FAMOTIDINE20 MG ORAL; +TYLENOL325 MG ORAL
--- NOTE | 2020-06-21 14:00 | NUR ---
ED Nurse Note: Pt walked in for L trunk pain radiating to chest. He states he has cough, bodyaches, chills for 4 days. Pt is alert and orientedx4, ambulatory. Denies nausea, vomiting, diarrhea. He has been seen by ERMD. EKG taken.
--- NOTE | 2020-06-21 14:07 | Emergency Room Report ---
History of Present Illness General Chief Complaint: Pain Source: Patient Present Illness HPI 19-year-old male presents to the emergency department tachypneic and reporting 10 out of 10 severity pain with inspiration and expiration to the rib cage area primarily laterally. He reports symptoms began 2 weeks ago and were very mild and he initially felt the midsternal. Patient states that over the last 3 days his symptoms have progressed faster and he is feeling short of breath even at rest. He denies wheezing. Patient denies any cardiac history. He denies smoking history. He denies history of asthma or COPD. He believes he has a low-grade fever. He reports nasal congestion. He also is reporting left lower quadrant abdominal pain that is intermittent. He denies constipation, diarrhea, nausea or vomiting. He denies history of gastritis. He denies excessive alcohol intake. He reports no significant past medical history in his family other than thyroid cancer. He denies hemoptysis. Denies recent travel. Denies contact with persons who have tested positive for or are under investigation/quarantine for COVID-19. He denies calf pain. He denies recent viral illnesses. Allergies: Coded Allergies: No Known Allergies (Unverified , 03/25/19) COVID-19 Screening Contact w/high risk pt: No Experienced COVID-19 symptoms?: Yes COVID-19 Testing performed SILK SCREEN FRAME ASSEMBLER: No Patient History Past Medical History: see triage record Past Surgical History: none Pertinent Family History: none Reviewed Nursing Documentation: PMH: Agreed; PSxH: Agreed Nursing Documentation-PMH Past Medical History: No History, Except For Hx Seizures: Yes - Last seizure 16 years ago Review of Systems All Other Systems: negative except mentioned in HPI Physical Exam Vital Signs Date Time Temp Pulse Resp B/P (MAP) Pulse Ox O2 Delivery O2 Flow Rate FiO2 06/21/20 13:33 98.6 94 15 135/88 (104) 96 Room Air Medical Decision Making PA Attestation Dr. Jeffrey Is my supervising Physician whom patient management has been discussed with. Diagnostic Impression: Primary Impression: Acute nonspecific chest pain with low risk of coronary artery disease Additional Impressions: Shortness of breath Stressful life events affecting family and household ER Course 19-year-old male presents to the emergency department tachypneic and reporting 10 out of 10 severity pain with inspiration and expiration to the rib cage area primarily laterally. He reports symptoms began 2 weeks ago and were very mild and he initially felt the midsternal. Patient states that over the last 3 days his symptoms have progressed faster and he is feeling short of breath even at rest. He denies wheezing. Patient denies any cardiac history. He denies smoking history. He denies history of asthma or COPD. He believes he has a low-grade fever. He reports nasal congestion. He also is reporting left lower quadrant abdominal pain that is intermittent. He denies constipation, diarrhea, nausea or vomiting. He denies history of gastritis. He denies excessive a lcohol intake. He reports no significant past medical history in his family other than thyroid cancer. He denies hemoptysis. Denies recent travel. Denies contact with persons who have tested positive for or are under investigation/quarantine for COVID-19. He denies calf pain. He denies recent viral illnesses. Ddx considered but are not limited to [place], pneumonia, contusion, costochondritis, PE, ACS, Shoulder strain, Chest wall contusion. aortic dissection. -- Vital signs: are WNL, pt. is afebrile H&PE are most consistent with dyspnea, subjective shortness of breath and chest pain in a person with low risk factors for cardiac disease or clotting disorder. Patient appears tachypneic and uncomfortable. He is tearful during lung exam. ORDERS: - EKG: -CBC -CMP -CK-MB -Troponins CXR: ED INTERVENTIONS: - PT. placed on cardiac monitoring. DISCHARGE: At this time pt. is stable for d/c to home. Will provide printed patient care instructions, and any necessary prescriptions. Care plan and follow up instructions have been discussed with the patient prior to discharge. Labs Test 06/21/20 14:00 White Blood Count 6.8 K/UL (4.8-10.8) Red Blood Count 5.92 M/UL (4.70-6.10) Hemoglobin 16.0 G/DL (14.2-18.0) Hematocrit 47.6 % (42.0-52.0) Mean Corpuscular Volume 80 FL (80-99) Mean Corpuscular Hemoglobin 27.0 PG (27.0-31.0) Mean Corpuscular Hemoglobin Concent 33.5 G/DL (32.0-36.0) Red Cell Distribution Width 10.8 % (11.6-14.8) Platelet Count 305 K/UL (150-450) Mean Platelet Volume 6.1 FL (6.5-10.1) Neutrophils (%) (Auto) 54.0 % (45.0-75.0) Lymphocytes (%) (Auto) 38.8 % (20.0-45.0) Monocytes (%) (Auto) 6.0 % (1.0-10.0) Eosinophils (%) (Auto) 0.5 % (0.0-3.0) Basophils (%) (Auto) 0.8 % (0.0-2.0) Prothrombin Time 11.5 SEC (9.30-11.50) Prothromb Time International Ratio 1.0 (0.9-1.1) Activated Partial Thromboplast Time 26 SEC (23-33) D-Dimer < 0.19 mg/L FEU Sodium Level 138 MMOL/L (136-145) Potassium Level 3.7 MMOL/L (3.5-5.1) Chloride Level 103 MMOL/L (98-107) Carbon Dioxide Level 24 MMOL/L (21-32) Blood Urea Nitrogen 14 mg/dL (7-18) Creatinine 0.8 MG/DL (0.55-1.30) Estimat Glomerular Filtration Rate > 60 mL/min (>60) Glucose Level 97 MG/DL (74-106) Calcium Level 9.4 MG/DL (8.5-10.1) Total Bilirubin 0.7 MG/DL (0.2-1.0) Aspartate Amino Transf (AST/SGOT) 19 U/L (15-37) Alanine Aminotransferase (ALT/SGPT) 27 U/L (12-78) Alkaline Phosphatase 116 U/L (46-116) Total Protein 8.4 G/DL (6.4-8.2) Albumin 4.1 G/DL (3.4-5.0) Globulin 4.3 g/dL Albumin/Globulin Ratio 1.0 (1.0-2.7) Lipase 101 U/L (73-393) Chest X-Ray Diagnostic Results Chest X-Ray Diagnostic Results : Chest X-Ray Ordered: Yes # of Views/Limited/Complete: 1 View Indication: Shortness of Breath EP Interpretation: Yes PA Xray: Interpretation reviewed, by supervising MD, and agrees with findings. Interpretation: no consolidation, no effusion, no pneumothorax, no acute cardiopulmonary disease Impression: No acute disease Electronically Signed by: Damaris Chris PA-C Last Vital Signs Date Time Temp Pulse Resp B/P (MAP) Pulse Ox O2 Delivery O2 Flow Rate FiO2 06/21/20 13:33 98.6 94 15 135/88 (104) 96 Room Air Disposition: HOME, SELF-CARE Condition: Stable Referrals: [facility] Patient Instructions: Nonspecific Chest Pain, [id number], Shortness of Breath, Jube-mi-Abym, Stress and Stress Management Additional Instructions: Take medications as directed. Take as needed for increased anxiety. This medication will cause drowsiness and affect your ability to have sound judgment and make decisions so please do not drive vehicles or operate heavy machinery while taking this medication. Follow up with a Mental Health Specialist/ Psychiatrist in 3 days, even if your symptoms have resolved. Also review list of Primary care clinics if you do not have a PCP you can follow up with within 3-5 days as well. --Please review [facility] resource information provided Return sooner to ED if new symptoms occur, or current symptoms become worse. - Please note that this Emergency Department Report was dictated using [employer] farm manager technology software, occasionally this can lead to erroneous entry secondary to interpretation by the dictation equipment. Damaris Chris Jun 21, 2020 14:07
[2020-06-21] MEDS ORDERED: Ketorolac 30mg Inj IM ONE (14:15)
[2020-06-21 14:37] LABS: BASOPHILS % (AUTO) 0.8 % (0.0-2.0); EOSINOPHILS % (AUTO) 0.5 % (0.0-3.0); HEMATOCRIT 47.6 % (42.0-52.0); LYMPHOCYTES % (AUTO) 38.8 % (20.0-45.0); MEAN CORPUSCULAR VOLUME 80 FL (80-99); PLATELET COUNT 305 K/UL (150-450); RED BLOOD COUNT 5.92 M/UL (4.70-6.10); RED CELL DISTRIBUTION WIDTH 10.8 % (11.6-14.8); WHITE BLOOD COUNT 6.8 K/UL (4.8-10.8)
[2020-06-21 14:38] VITALS: BP 123/75
--- NOTE | 2020-06-21 14:38 | Diagnostic Imaging Report ---
EXAM: XR Chest, 1 View CLINICAL HISTORY: PAIN TECHNIQUE: Frontal view of the chest. COMPARISON: Chest x-ray 03/26/19 FINDINGS: Lungs: Unremarkable. No consolidation. Pleural space: Unremarkable. No pneumothorax. Heart: Unremarkable. No cardiomegaly. Mediastinum: Unremarkable. Bones/joints: Unremarkable. IMPRESSION: Unremarkable chest x-ray.
[2020-06-21 15:05] LABS: ALANINE AMINOTRANSFERASE 27 U/L (12-78); ALBUMIN 4.1 G/DL (3.4-5.0); ALKALINE PHOSPHATASE 116 U/L (46-116); ASPARTATE AMINO TRANSFERASE 19 U/L (15-37); BILIRUBIN,TOTAL 0.7 MG/DL (0.2-1.0); BLOOD UREA NITROGEN 14 mg/dL (7-18); CALCIUM 9.4 MG/DL (8.5-10.1); CARBON DIOXIDE 24 MMOL/L (21-32); CREATININE 0.8 MG/DL (0.55-1.30)
[2020-06-21 15:10] LABS: CHLORIDE 103 MMOL/L (98-107); POTASSIUM 3.7 MMOL/L (3.5-5.1); SODIUM 138 MMOL/L (136-145)
[2020-06-21] MEDS ORDERED: VISTARIL50 MG ORAL (15:31)
[2020-06-21 15:47] VITALS: BP 126/77
--- NOTE | 2020-06-21 15:47 | NUR ---
ER DISCHARGE NOTE: Patient is cleared to be discharged per ERMD, pt is aox4, on room air, with stable vital signs. pt was given dc and prescription instructions, pt was able to verbalize understanding, pt id band removed. pt is able to ambulate with steady gait. pt took all belongings.
== END 2020-06-21 15:48 | disposition home or self-care (01) ==
LOC: EMR 14:12
DX: R07.9 Chest pain, unspecified (principal); R06.02 Shortness of breath; F43.9 Reaction to severe stress, unspecified; Z80.8 Family history of malignant neoplasm of other organs or systems; G40.909 Epilepsy, unspecified, not intractable, without status epilepticus
CPT/HCPCS: 36415; 71045; 80053; 83690; 85025; 85379; 85610; 85730; 93005; 96372; J1885; Z7502; 99283

== ENCOUNTER 2020-09-06 14:03 | Emergency (ER) | payer OTHER ==
[~2020-09-06] VITALS: Ht 172.7 cm; Wt 67.1 kg
[~2020-09-06 14:03] MED LIST changes: +VISTARIL50 MG ORAL
[2020-09-06 14:12] VITALS: BP 120/64
--- NOTE | 2020-09-06 14:12 | NUR ---
ED Nurse Note: Pt walked in to ed c/o left sided headache onset 4 days ago after falling off a ladder. pt estimates a 3 ft fall. pt states he landed with his arms first but hit his forehead. denies loc but reports for the past four days, he feels "out of it". denies nvd. pt also reports sob.
[2020-09-06] MEDS ORDERED: Acetaminophen 500mg (ES) tab ORAL ONE (14:15)
--- NOTE | 2020-09-06 14:18 | Emergency Room Report ---
History of Present Illness General Chief Complaint: Multiple Trauma/Fall Source: Patient, Medical Record Present Illness HPI Patient is a 19-year-old male presents for recent head injury. Patient reports having fallen off a ladder 4 days ago. States he was approximately 3 feet high fell and hit the left side of his head. Denies any loss of consciousness. Had not been vomiting since injury. Reports having persistent headache. Denies any weakness to his extremities. Reports having some difficulty with breathing. Prior history of stomach discomfort is currently taking Pantoprazole. Denies any fever or neck pain. Denies any other past medical history. Allergies: Coded Allergies: No Known Allergies (Unverified , 03/25/19) COVID-19 Screening COVID-19 risk:Contact w/high r: No Has patient experienced downs: No COVID-19 Testing performed TILE PROFESSIONAL: No Patient History Reviewed Nursing Documentation: PMH: Agreed; PSxH: Agreed Nursing Documentation-PMH Hx Seizures: Yes - Last seizure 16 years ago Review of Systems All Other Systems: negative except mentioned in HPI Physical Exam Vital Signs Date Time Temp Pulse Resp B/P (MAP) Pulse Ox O2 Delivery O2 Flow Rate FiO2 09/06/20 14:09 98.4 94 16 120/64 (82) 98 Room Air Sp02 EP Interpretation: reviewed, normal General Appearance: normal inspection, alert, no apparent distress, GCS 15 Head: normocephalic, atraumatic Eyes: normal eye exam, PERRL, EOMI, lids + conjunctiva normal, no hyphema, no racoon eyes ENT: normal ENT inspection, TMs + canals normal, oropharynx normal, no fuentes signs Neck: normal inspection, trach midline, no bony tend, full range of motion without pain Respiratory: effort normal, no retractions, clear to auscultation, chest symmetrical, palpation of chest normal, speaking in full sentences Cardiovascular: regular rate, rhythm, no JVD Cardiovascular #2: 2+ radial (R), 2+ radial (L), 2+ dorsalis pedis (R), 2+ dorsalis pedis (L) Gastrointestinal: normal inspection, non-tender, non-distended, no rebound/guar ding, normal bowel sounds Genitourinary: normal inspection Musculoskeletal: normal inspection, strength & tone normal, normal ROM, non- tender, back normal Skin: no rash, no lacerations, normal palpation Lymphatic: normal inspection Neurologic: normal inspection, CN II-XII intact, oriented x3, sensory intact, motor strength/tone normal, normal speech Psychiatric: normal inspection, memory normal, mood normal, no suicidal/homicidal ideation Medical Decision Making Diagnostic Impression: Primary Impression: Minor head injury ER Course Patient presents for recent head injury after a fall. Differential diagnosis includes limited to minor head injury, intracranial hemorrhage, skull fracture among others. Patient not noted to have any external signs of trauma. CT imaging was ordered to patient's recent head injury. CT imaging read by radiology showed no acute intracranial process.Chest x-ray was ordered due to patient having some complaints of mild chest discomfort. Patient does not appear to have any evidence of significant head injury requiring hospi talization. He is able to ambulate without assistance and has normal neurologic exam. Patient will be discharged home. Patient was advised to return if worse. Patient was advised to follow-up with his primary care physician for recheck in 2 to 3 days.This medical record is generated with [employer] bead cutter software. There may be some bead cutter discrepancies related to use of this software Last Vital Signs Date Time Temp Pulse Resp B/P (MAP) Pulse Ox O2 Delivery O2 Flow Rate FiO2 09/06/20 14:09 98.4 94 16 120/64 (82) 98 Room Air Status: improved Disposition: HOME, SELF-CARE Condition: Stable Scripts Acetaminophen* (ACETAMINOPHEN EXTRA STRENGTH*) 500 Mg Tablet 500 MG ORAL Q8H PRN for Fever/Headache/Mild Pain, #30 TAB Prov: Fransisco Kruse MD 09/06/20 Fransisco Kruse MD Sep 06, 2020 14:18
--- NOTE | 2020-09-06 14:20 | NUR ---
ED Nurse Note: Pt was taken to CT.
--- NOTE | 2020-09-06 14:26 | NUR ---
ED Nurse Note: Pt returned from CT.
[2020-09-06] MEDS ORDERED: ACETAMINOPHEN500 M3 ORAL (14:34)
--- NOTE | 2020-09-06 14:40 | Diagnostic Imaging Report ---
EXAM: CT Head Without Intravenous Contrast CLINICAL HISTORY: PAIN TECHNIQUE: Axial computed tomography images of the head/brain without intravenous contrast. CTDI is 53.40 mGy and DLP is 1045.50 mGy-cm. One or more of the following dose reduction techniques were used: automated exposure control, adjustment of the mA and/or kV according to patient size, use of iterative reconstruction technique. COMPARISON: CT head on 03/26/2019 FINDINGS: Brain: No acute infarct or hemorrhage. No extra-axial fluid collection. No mass effect or midline shift. Ventricles and sulci: Normal. No ventriculomegaly or intraventricular hemorrhage. Bones: Normal. No bony lesion or acute fracture. Subcutaneous tissues: Normal. Sinuses: Normal. No air-fluid levels or mucosal thickening. Mastoid air cells: Normal. Orbits: Grossly unremarkable. IMPRESSION: No acute intracranial abnormality.
--- NOTE | 2020-09-06 14:41 | NUR ---
ED Nurse Note: Xray at bedside.
[2020-09-06 14:46] VITALS: BP 120/64
--- NOTE | 2020-09-06 14:46 | NUR ---
ED Nurse Note: Pt cleared by ERMD for discharge. DC instructions was given and explained to pt and verbalized understanding of teachings. prescription sent electronically to the pharmacy of choice. All medical deviecs such as ID band removed. Pt is AAO x4, ambulatory and left with all personal belongings.
--- NOTE | 2020-09-07 08:14 | Diagnostic Imaging Report ---
EXAM: XR Chest, 1 View CLINICAL HISTORY: SOB TECHNIQUE: Frontal view of the chest. COMPARISON: 06/21/20 FINDINGS: Lungs: Unremarkable. No consolidation. Pleural space: Unremarkable. No pneumothorax. Heart: Unremarkable. No cardiomegaly. Mediastinum: Unremarkable. Bones/joints: Unremarkable. IMPRESSION: Normal chest x-ray.
== END 2020-09-06 14:46 | disposition home or self-care (01) ==
LOC: EMR 14:30
DX: S09.90XA Unspecified injury of head, initial encounter (principal); G40.909 Epilepsy, unspecified, not intractable, without status epilepticus; W11.XXXA Fall on and from ladder, initial encounter; Y92.9 Unspecified place or not applicable; R07.9 Chest pain, unspecified
CPT/HCPCS: 70450; 71045; Z7502; 99284

== ENCOUNTER 2020-09-08 17:56 | Emergency (ER) | payer OTHER ==
[~2020-09-08] VITALS: Ht 172.7 cm; Wt 68.0 kg
[~2020-09-08 17:56] MED LIST changes: +ACETAMINOPHEN500 M3 ORAL
[2020-09-08 18:15] VITALS: BP 117/52
--- NOTE | 2020-09-08 19:01 | Emergency Room Report ---
History of Present Illness General Chief Complaint: Male Urogenital Problems Source: Patient Present Illness HPI 19 YO male presents to the ED CO 04/10 in severity dysuria and lower abdominal pain x 2 months. Pt. denies penile dc. He denies hematuria. Pt. reports he is sexually active and tested for STI two months ago and was negative. Pt. denies fevers or chills. He denies low back pain. He denies testicular pain or tenderness. He denies rash or genital lesions. Pt. denies abdominal tenderness. He denies nausea, vomiting, constipation or diarrhea. Allergies: Coded Allergies: No Known Allergies (Unverified , 03/25/19) COVID-19 Screening Contact w/high risk pt: No Experienced COVID-19 symptoms?: No COVID-19 Testing performed MEDICAID NURSE: Yes COVID-19 Screening: Negative COVID-19 COVID-19 Testing Source: 2 weeks ago @ [facility] Patient History Past Medical History: see triage record Past Surgical History: none Pertinent Family History: none Reviewed Nursing Documentation: PMH: Agreed; PSxH: Agreed Nursing Documentation-PMH Hx Seizures: Yes - last seizure over 15 years ago Review of Systems All Other Systems: negative except mentioned in HPI Physical Exam Vital Signs Date Time Temp Pulse Resp B/P (MAP) Pulse Ox O2 Delivery O2 Flow Rate FiO2 09/08/20 18:06 99.1 109 20 117/52 (73) 94 Room Air Sp02 EP Interpretation: reviewed, normal General Appearance: well appearing, no apparent distress, alert, GCS 15, non- toxic Head: normocephalic, atraumatic Eyes: bilateral eye normal inspection, bilateral eye PERRL ENT: hearing grossly normal, normal voice Neck: full range of motion Respiratory: lungs clear, normal breath sounds, speaking full sentences Cardiovascular #1: regular rate, rhythm Gastrointestinal: normal bowel sounds, non tender, soft, non-distended, no guarding Genitourinary: normal inspection, no CVA tenderness Musculoskeletal: normal range of motion, gait/station normal, non-tender Neurologic: alert, motor strength/tone normal, oriented x3, sensory intact, responsive, speech normal Psychiatric: judgement/insight normal Skin: no rash, normal color Medical Decision Making PA Attestation Dr. Acosta is my supervising Physician whom patient management has been discussed with. Diagnostic Impression: Primary Impression: Urethritis ER Course 19 YO male presents to the ED CO 04/10 in severity dysuria and lower abdominal pain x 2 months. Pt. denies penile dc. He denies hematuria. Pt. reports he is sexually active and tested for STI two months ago and was negative. Pt. denies fevers or chills. He denies low back pain. He denies testicular pain or tenderness. He denies rash or genital lesions. Pt. denies abdominal tenderness. He denies nausea, vomiting, constipation or diarrhea. Ddx considered but are not limited to UTi , Urethritis, LGV, STI, Stone, Cystitis, prostatitis Vital signs: are WNL, pt. is afebrile H&PE are most consistent with Urethritis ORDERS: - UA : few bacteria, mild increase in inflammatory markers. - will treat as urethritis per standard of care. ED INTERVENTIONS: -250mg Rocephin IM - Pyridium PO DISCHARGE: At this time pt. is stable for d/c to home. Will provide printed patient care instructions, and any necessary prescriptions. Care plan and follow up instructions have been discussed with the patient prior to discharge. Labs Test 09/08/20 18:45 Urine Color Yellow Urine Appearance Slightly cloudy Urine pH 7 (4.5-8.0) Urine Specific [place] 1.015 (1.005-1.035) Urine Protein 1+ (NEGATIVE) Urine Glucose (UA) Negative (NEGATIVE) Urine Ketones Negative (NEGATIVE) Urine Blood Negative (NEGATIVE) Urine Nitrite Negative (NEGATIVE) Urine Bilirubin Negative (NEGATIVE) Urine Urobilinogen 1 MG/DL (0.0-1.0) Urine Leukocyte Esterase 1+ (NEGATIVE) Urine RBC 0 /HPF (0 - 0) Urine WBC 5-10 /HPF (0 - 0) Urine Squamous Epithelial Cells Occasional /LPF Urine Amorphous Sediment Many /LPF (NONE) Urine Bacteria Few /HPF (NONE) Last Vital Signs Date Time Temp Pulse Resp B/P (MAP) Pulse Ox O2 Delivery O2 Flow Rate FiO2 09/08/20 18:15 99.1 20 117/52 94 Room Air 09/08/20 18:06 109 Status: improved Disposition: HOME, SELF-CARE Condition: Stable Scripts Doxycycline Hyclate* (VIBRAMYCIN*) 100 Mg Capsule 100 MG ORAL EVERY 12 HOURS for 7 Days, #14 CAP 0 Refills Prov: Damaris Chris 09/08/20 Patient Instructions: Urethritis, Adult Additional Instructions: Take medications as directed. Follow up with a Primary Care Provider in 3-5 days, even if your symptoms have resolved. Return sooner to ED if new symptoms occur, or current symptoms become worse. - Please note that this Emergency Department Report was dictated using [email or web address] learning program coordinator technology software, occasionally this can lead to erroneous entry secondary to interpretation by the dictation equipment. Damaris Chris Sep 08, 2020 19:00
[2020-09-08 19:05] LABS: APPEARANCE,URINE SLIGHTLY CLOUDY; BILIRUBIN, URINE NEGATIVE (NEGATIVE); GLUCOSE, URINE (UA) NEGATIVE (NEGATIVE); KETONES,URINE NEGATIVE (NEGATIVE); LEUKOCYTE ESTERASE ,URINE 1+ (NEGATIVE); NITRITE,URINE NEGATIVE (NEGATIVE); PH,URINE 7 (4.5-8.0); PROTEIN,URINE 1+ (NEGATIVE); UROBILINOGEN,URINE 1 MG/DL (0.0-1.0)
[2020-09-08 19:10] LABS: COLOR,URINE YELLOW
[2020-09-08] MEDS ORDERED: Phenazopyridine 200mg tab ORAL ONE (19:30)
[2020-09-08] MEDS ORDERED: Lidocaine 1% MPF 10mg/ml 5ml INJ ONE (19:30)
[2020-09-08] MEDS ORDERED: VIBRAMYCIN100 MG ORAL (19:32)
[2020-09-08 19:45] VITALS: BP 118/65
== END 2020-09-08 19:45 | disposition home or self-care (01) ==
LOC: EMR 18:30
DX: N34.2 Other urethritis (principal)
CPT/HCPCS: 81003; 96372; J0696; Z7502; 99283

== ENCOUNTER 2020-09-15 12:32 | Emergency (ER) | payer OTHER ==
[~2020-09-15] VITALS: Ht 172.7 cm; Wt 72.6 kg
[~2020-09-15 12:32] MED LIST changes: +VIBRAMYCIN100 MG ORAL
[2020-09-15 12:48] VITALS: BP 128/71
--- NOTE | 2020-09-15 12:49 | NUR ---
ED Nurse Note: Patient walked in to ER from home due to N/V but no D. patient reported headache and white emesis. no vomiting currently. Patient alert and oriented x4 and ambulatory. calm and cooperative. skin clean and intact. no cardiac or pulmonary distress noted at this time. Patient denied Covid symptoms or contact to Covid positive patients.
--- NOTE | 2020-09-15 12:57 | Emergency Room Report ---
History of Present Illness General Chief Complaint: Vomiting Source: Patient Present Illness HPI 19-year-old male with no significant past medical history here complaining of few days of few bouts of nonbloody emesis, feeling nauseated and abdominal bloating. Denies any constipation or diarrhea. Denies blood in stool. Denies fever and chills no urinary symptoms. Has not taken medication for symptom relief. Patient was recently seen [facility] for urinary tract infection. Denies chest pain, shortness of breath, headache and dizziness at this time. Denies drug use, alcohol intake. Denies tobacco smoke. 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 Patient History Past Medical History: see triage record Past Surgical History: none Pertinent Family History: none Reviewed Nursing Documentation: PMH: Agreed; PSxH: Agreed Nursing Documentation-PMH Past Medical History: No History, Except For Hx Seizures: Yes - last seizure over years ago Review of Systems All Other Systems: negative except mentioned in HPI Physical Exam Vital Signs Date Time Temp Pulse Resp B/P (MAP) Pulse Ox O2 Delivery O2 Flow Rate FiO2 09/15/20 12:38 98.1 89 18 128/71 (90) 95 Room Air Sp02 EP Interpretation: reviewed, normal General Appearance: no apparent distress, alert, GCS 15, non-toxic Head: normocephalic, atraumatic Eyes: bilateral eye normal inspection, bilateral eye PERRL ENT: hearing grossly normal, normal pharynx, no angioedema, normal voice Neck: full range of motion, supple/symm/no masses Respiratory: chest non-tender, lungs clear, normal breath sounds, speaking full sentences Cardiovascular #2: 2+ carotid (R), 2+ carotid (L), 2+ radial (R), 2+ radial (L), 2+ dorsalis pedis (R), 2+ dorsalis pedis (L) Gastrointestinal: non tender, soft, no mass, no organomegaly, no peritonitis, no bruit, no guarding, no hernia, no pulsatile mass, no rebound Rectal: deferred Genitourinary: no CVA tenderness Musculoskeletal: back normal Neurologic: alert, motor strength/tone normal, oriented x3, sensory intact, responsive, speech normal Reflexes: 3+ bicep (R), 3+ bicep (L), 3+ tricep (R), 3+ tricep (L), 3+ knee (R), 3+ knee (L) Skin: no rash Lymphatic: normal inspection Medical Decision Making PA Attestation All diagnoses and treatment plans were reviewed and discussed with my supervising physician Dr. Alcantara Diagnostic Impression: Primary Impression: Gastritis Additional Impressions: Marijuana abuse Colitis ER Course 19-year-old male with no significant past medical history here complaining of few days of few bouts of nonbloody emesis, feeling nauseated and abdominal bloating. Denies any constipation or diarrhea. Denies blood in stool. Denies fever and chills no urinary symptoms. Has not taken medication for symptom relief. Patient was recently seen [facility] for urinary tract infection. Denies chest pain, shortness of breath, headache and dizziness at this time. Denies drug use, alcohol intake. Denies tobacco smoke. Ddx considered but are not limited to: appendicitis, cholecystis, gastritis, gastroenteritis, UTI, pyelonephritis, SBO, diverticulitis, influenza with GI manifestation, pancreatitis, alcohol intoxication Vital signs: are WNL, pt. is afebrile H&PE are most consistent with: Gastritis, marijuana abuse ORDERS: Abdominal pain order set, Zofran, Pepcid, dicyclomine ED INTERVENTIONS: NS bolus, Zofran, Pepcid DISCHARGE: At this time pt. is stable for d/c to home. Will provide printed patient care instructions, and any necessary prescriptions. Care plan and follow up instructions have been discussed with the patient prior to discharge. Take medication as directed, follow primary care provider, if worsening symptoms return to emergency room. Avoid using marijuana. CT/MRI/US Diagnostic Results CT/MRI/US Diagnostic Results : Imaging Test Ordered: CT abdomen pelvis with contrast Impression Colitis Last Vital Signs Date Time Temp Pulse Resp B/P (MAP) Pulse Ox O2 Delivery O2 Flow Rate FiO2 09/15/20 12:48 98.1 18 128/71 95 Room Air 09/15/20 12:48 89 Disposition: HOME, SELF-CARE Condition: Stable Scripts No Active Prescriptions or Reported Meds Referrals: [facility] (PCP) Patient Instructions: Nausea and Vomiting, Adult Additional Instructions: Take medication as directed, follow primary care provider, if worsening symptoms return to emergency room. Avoid using marijuana. Itzel Lagunas Sep 15, 2020 12:57
[2020-09-15 13:13] LABS: APPEARANCE,URINE CLEAR; BILIRUBIN, URINE NEGATIVE (NEGATIVE); COLOR,URINE PALE YELLOW; GLUCOSE, URINE (UA) NEGATIVE (NEGATIVE); KETONES,URINE NEGATIVE (NEGATIVE); LEUKOCYTE ESTERASE ,URINE NEGATIVE (NEGATIVE); NITRITE,URINE NEGATIVE (NEGATIVE); PH,URINE 7 (4.5-8.0); PROTEIN,URINE NEGATIVE (NEGATIVE); UROBILINOGEN,URINE NORMAL MG/DL (0.0-1.0)
[2020-09-15 13:15] LABS: BASOPHILS % (AUTO) 1.1 % (0.0-2.0); EOSINOPHILS % (AUTO) 0.1 % (0.0-3.0); HEMATOCRIT 50.1 % (42.0-52.0); HEMOGLOBIN 16.9 G/DL (14.2-18.0); LYMPHOCYTES % (AUTO) 28.4 % (20.0-45.0); MEAN CORPUSCULAR VOLUME 82 FL (80-99); MONOCYTES % (AUTO) 5.7 % (1.0-10.0); NEUTROPHILS % (AUTO) 64.8 % (45.0-75.0); PLATELET COUNT 337 K/UL (150-450); RED BLOOD COUNT 6.07 M/UL (4.70-6.10); RED CELL DISTRIBUTION WIDTH 12.2 % (11.6-14.8)
[2020-09-15 13:29] LABS: ANION GAP 9 mmol/L (5-15); BLOOD UREA NITROGEN 10 mg/dL (7-18); CALCIUM 9.5 MG/DL (8.5-10.1); CARBON DIOXIDE 27 MMOL/L (21-32); CHLORIDE 103 MMOL/L (98-107); CREATININE 0.8 MG/DL (0.55-1.30); POTASSIUM 3.7 MMOL/L (3.5-5.1); SODIUM 139 MMOL/L (136-145)
[2020-09-15 13:40] LABS: ALANINE AMINOTRANSFERASE 36 U/L (12-78); ALBUMIN 4.5 G/DL (3.4-5.0); ALKALINE PHOSPHATASE 145 U/L (46-116); ASPARTATE AMINO TRANSFERASE 25 U/L (15-37); BILIRUBIN,TOTAL 1.2 MG/DL (0.2-1.0)
[2020-09-15 13:41] LABS: BILIRUBIN,DIRECT 0.2 MG/DL (0.0-0.3)
[2020-09-15] MEDS ORDERED: Omnipaque-300 100ml vial INJ PRN (14:00)
--- NOTE | 2020-09-15 14:16 | NUR ---
ED Nurse Note: pt taken to CT in stable condition.
--- NOTE | 2020-09-15 14:26 | NUR ---
ED Nurse Note: pt came back from CT in stable condition.
--- NOTE | 2020-09-15 14:51 | Diagnostic Imaging Report ---
Clinical Indication: Abdominal pain, bloating, nausea, vomiting Technique: No oral contrast utilized, per emergency room physician request IV administration nonionic contrast. Venous phase spiral acquisition obtained through the abdomen and pelvis. Multiplanar reconstructions were generated. Total dose length product 195 mGycm. CTDIvol(s) 4 mGy. Dose reduction achieved using automated exposure control Comparison: No comparison CT scans. Reference is made to abdominal sonogram dated 03/25/2019 Findings: Lack of enteric contrast limits assessment of the GI tract. The appendix is normal. There is slight infiltration of the fat surrounding the proximal sigmoid colon, although the wall does not appear particularly thickened. No small bowel distention. Distal esophagus, stomach, duodenum are unremarkable. No free or loculated intraperitoneal gas or fluid is evident. The liver, gallbladder, bile ducts, pancreas, spleen, adrenals, kidneys are unremarkable. No renal or ureteral calculi, hydronephrosis, or hydroureter. Included lung bases are clear. The bones are unremarkable. Impression: Limited assessment of the GI tract, due to lack of enteric contrast administration Equivocal slight infiltration of the fat surrounding the proximal sigmoid colon, of doubtful significance but could indicate mild colitis. No other acute or significant findings The CT scanner at [facility] is accredited by the [employer] and the scans are performed using protocols designed to limit radiation exposure to as low as reasonably achievable to attain images of sufficient resolution adequate for diagnostic evaluation.
[2020-09-15] MEDS ORDERED: ZOFRAN4 M1 ORAL (15:06)
[2020-09-15] MEDS ORDERED: FAMOTIDINE20 MG ORAL (15:06)
[2020-09-15 15:36] VITALS: BP 128/71
--- NOTE | 2020-09-15 15:37 | NUR ---
ED Nurse Note: Pt cleared by health care Provider for discharge. DC instructions/prescription was given and explained to pt and verbalized understanding of teachings. All medical deviecs such as ID band removed. Pt is AAO x4, ambulatory and left with all personal belongings.
== END 2020-09-15 15:37 | disposition home or self-care (01) ==
LOC: EMR 12:53
DX: K29.70 Gastritis, unspecified, without bleeding (principal); K52.9 Noninfective gastroenteritis and colitis, unspecified; F12.10 Cannabis abuse, uncomplicated
CPT/HCPCS: 36415; 74177; 80053; 80307; 81003; 82248; 83690; 85025; 85610; 85730; 96374; 96375; G0480; J2405; J7030; Q9965; S0028; Z7502; 99284

== ENCOUNTER 2020-09-21 23:14 | Emergency (ER) | payer OTHER ==
[~2020-09-21] VITALS: Ht 172.7 cm; Wt 70.3 kg
--- NOTE | 2020-09-21 23:46 | NUR ---
ED Nurse Note: Pt is axox4, walks with a steady gait and has stable vital signs on RA. he states about three hours ago he was eatting shrimp and states that he thinks he swallowed one of the shell pieces and is concerned that it got stuck. Pt's voice has a slight raspy quality to it during assesment. He is able to swallow and speak in full sentances. He has no nausea or vomitting.
[2020-09-21 23:50] VITALS: BP 132/78
[2020-09-22] MEDS ORDERED: Lidocaine 2% Visc 15ml soln ORAL ONE
--- NOTE | 2020-09-22 00:09 | Emergency Room Report ---
History of Present Illness General Chief Complaint: Sore Throat Source: Patient Present Illness HPI 19-year-old male with no past medical history. He presents with chief complaint of sore throat foreign body. He was eating shrimp with the shell on. He said it felt to get stuck in his throat. He said he ate bananas and drink and felt like it went away. But he still felt some scratchiness to his throat. He is worried that they may be some shell stuck there. He has no respiratory issue. No coughing. No fever chills. Nothing made it better. Swallowing it made it worse. Allergies: Coded Allergies: No Known Allergies (Unverified , 03/25/19) COVID-19 Screening Contact w/high risk pt: No Experienced COVID-19 symptoms?: No COVID-19 Testing performed TRANSPLANT RN: No Patient History Past Medical History: see triage record, old chart reviewed Past Surgical History: none Pertinent Family History: none Social History: Denies: smoking Immunizations: other Reviewed Nursing Documentation: PMH: Agreed; PSxH: Agreed Nursing Documentation-PMH Past Medical History: No History, Except For Hx Seizures: Yes - childhood seizure that happened once Review of Systems Eye: Denies: eye pain, blurred vision ENT: Denies: ear pain, nose congestion, throat swelling Respiratory: Denies: cough, shortness of breath Cardiovascular: Denies: chest pain, palpitations Gastrointestinal: Denies: abdominal pain, diarrhea, nausea, vomiting Musculoskeletal: Denies: back pain, joint pain Skin: Denies: rash Neurological: Denies: headache, numbness Endocrine: Denies: increased thirst, increased urine Hematologic/Lymphatic: Denies: easy bruising All Other Systems: negative except mentioned in HPI Physical Exam Vital Signs Date Time Temp Pulse Resp B/P (MAP) Pulse Ox O2 Delivery O2 Flow Rate FiO2 09/21/20 23:19 97.2 63 18 135/77 (96) 99 Room Air Vitals normal Sp02 EP Interpretation: reviewed, normal General Appearance: well appearing, no apparent distress, alert Head: normocephalic, atraumatic Eyes: bilateral eye PERRL, bilateral eye EOMI ENT: hearing grossly normal, normal pharynx Neck: full range of motion, supple, no meningismus Respiratory: chest non-tender, lungs clear, normal breath sounds Cardiovascular #1: regular rate, rhythm, no murmur Gastrointestinal: normal bowel sounds, non tender, no mass, no organomegaly, no bruit, non-distended Musculoskeletal: back normal, normal range of motion, gait/station normal Psychiatric: mood/affect normal Medical Decision Making Diagnostic Impression: Primary Impression: Throat irritation ER Course Patient with throat irritation. No evidence of a foreign body. His symptoms feel better after some viscous lidocaine. Will discharge home. Last Vital Signs Date Time Temp Pulse Resp B/P (MAP) Pulse Ox O2 Delivery O2 Flow Rate FiO2 09/21/20 23:50 98.0 70 16 132/78 99 Room Air Status: improved Disposition: HOME, SELF-CARE Condition: Stable Referrals: [facility] (PCP) Additional Instructions: Follow-up with your doctor in 7 days. Return if symptoms worsen. Manny Cordoba MD Sep 22, 2020 00:09
[2020-09-22 00:10] VITALS: BP 114/80
== END 2020-09-22 00:10 | disposition home or self-care (01) ==
LOC: EMR 23:32
DX: J39.2 Other diseases of pharynx (principal)
CPT/HCPCS: 99282